=== PATIENT | female | born 1950 | race Two or more races ===

== ENCOUNTER → 2017-11-03 | Outpatient (CLI) | payer OTHER | END | disposition home or self-care (01) | LOC: SONOGRAMA 11:06 | DX: E04.8 Other specified nontoxic goiter (principal) ==

== ENCOUNTER 2020-09-25 10:56 | Outpatient (CLI) | payer OTHER | END 2020-09-25 11:03 | disposition home or self-care (01) | LOC: SONOGRAMA 10:56 | PROVIDERS: ATTEND Specialist | DX: E04.1 Nontoxic single thyroid nodule (principal); E03.8 Other specified hypothyroidism ==

== ENCOUNTER 2023-08-16 10:42 | Outpatient (CLI) | payer OTHER | END 2023-08-16 10:54 | disposition home or self-care (01) | LOC: SONOGRAMA 10:42 | PROVIDERS: ATTEND Internal Medicine Endocrinology, Diabetes & Metabolism | DX: E03.9 Hypothyroidism, unspecified (principal); E04.1 Nontoxic single thyroid nodule ==

== ENCOUNTER 2024-10-17 10:18 | Outpatient (CLI) | payer OTHER | END 2024-10-17 10:25 | disposition home or self-care (01) | LOC: SONOGRAMA 10:18 | DX: E04.2 Nontoxic multinodular goiter (principal) ==